=== PATIENT | female | born 1940 | race Caucasian/White ===

== ENCOUNTER 2017-08-17 10:14 | Emergency (ER) | payer OTHER, MEDICARE ==
[~2017-08-17] VITALS: Ht 157.5 cm; Wt 72.0 kg
[2017-08-17 10:57] LABS: HEMATOCRIT 40.4 % (36.0-46.0); HEMOGLOBIN 13.9 G/DL (11.9-15.5); MCH 29.4 PG (29.0-34.0); MCHC 34.4 G/DL (30.0-36.0); MCV 85.6 FL (83-99); PLATELET COUNT 194 K/uL (156-360); RBC DIS.WIDTH-CV 12.4 % (11.8-14.6); RBC DIS.WIDTH-SD 38.9 % (39-53); RED BLOOD COUNT 4.72 M/uL (3.80-5.20); WHITE BLOOD COUNT 7.5 K/uL (4.1-10.2)
[2017-08-17 11:09] LABS: ALBUMIN 4.3 g/dL (3.2-4.8); CHLORIDE 94 mEq/L (99-109); SODIUM 131 mEq/L (136-147)
[2017-08-17 11:11] LABS: GLUCOSE 126 mg/dL (70-99)
[2017-08-17 11:13] LABS: TOTAL BILIRUBIN 0.7 mg/dL (0.0-1.0)
[2017-08-17 11:15] LABS: ALKALINE PHOSPHATASE 90 IU/L (3-129); CREATININE 1.4 mg/dL (0.6-1.3); GFR ESTIMATE (CALCULATED) 39 mL/min/
[2017-08-17 11:16] LABS: UREA NITROGEN (BUN) 24 mg/dL (9-23)
[2017-08-17 11:17] LABS: AST (GOT) 24 IU/L (2-34)
[2017-08-17 11:18] LABS: ALT (GPT) 12 IU/L (3-49); LIPASE 25 U/L (1.0-51.0)
[2017-08-17 11:26] LABS: ANISOCYTOSIS 1+; BASOPHIL (%) 0.3 % (0-1); EOSINOPHIL (%) 0.9 % (0-5); EOSINOPHIL COUNT 0.1 K/uL (0-0.3); IMMATURE GRANULOCYTE (%) 0.3 % (0.0-0.7); LYMPHOCYTE (%) 19.1 % (15-42); LYMPHOCYTE COUNT 1.4 K/uL (1.0-2.8); MICROCYTOSIS 1+; MONOCYTE (%) 6.9 % (3-12); MONOCYTE COUNT 0.5 K/uL (0-0.8); NEUTROPHIL (%) 72.5 % (45-76); NEUTROPHIL COUNT 5.5 K/uL (1.8-6.4)
[2017-08-17 13:18] LABS: APPEARANCE CLOUDY ((CLEAR)); BILIRUBIN NEGATIVE; BLOOD NEGATIVE; COLOR YELLOW ((YELLOW)); GLUCOSE (STRIP) NEGATIVE; KETONES 5; LEUKOCYTES LARGE; NITRITE NEGATIVE; PROTEIN (STRIP) 30; SPECIFIC GRAVITY 1.013 (1.000-1.030); UROBILINOGEN 0.2 MG/DL (0.2-1.0)
[2017-08-17 13:23] LABS: BACTERIA RARE /HPF; EPITHELIAL CELLS 2+ /HPF; MUCUS TRACE /LPF
[2017-08-17] MEDS ORDERED: ZOFRAN ODT4 MG PO (13:53)
[2017-08-17] MEDS ORDERED: TESSALON PERLE100 MG PO (14:13)
[2017-08-17 14:39] VITALS: BP 130/66
== END 2017-08-17 14:43 | disposition home or self-care (01) ==
LOC: EME 10:14
PROVIDERS: Physician Assistant
DX: B34.9 Viral infection, unspecified (principal); E86.0 Dehydration; I12.9 Hypertensive chronic kidney disease with stage 1 through stage 4 chronic kidney disease, or unspecified chronic kidney disease; N18.9 Chronic kidney disease, unspecified; K21.9 Gastro-esophageal reflux disease without esophagitis; Z88.0 Allergy status to penicillin
CPT/HCPCS: 71046; 80053; 81003; 83630; 83690; 85025; 87077; 87086; 87186; 87493; 87506; 93005; 99281; 99284; J7040